=== PATIENT | female | born 1990 | race Caucasian/White ===

== ENCOUNTER 2017-01-11 08:50 | Emergency (ER) | payer OTHER ==
[~2017-01-11] VITALS: Ht 170.2 cm; Wt 49.9 kg
--- NOTE | 2017-01-11 09:28 | NUR ---
Patient ambulated to bathroom with steady gait, and had one loose BM per patient's report.
[2017-01-11 09:49] LABS: BASOPHILS % (AUTO) 0.3 % (0.0-2.0); HEMATOCRIT 30.6 % (31.2-41.9); HEMOGLOBIN 10.5 g/dL (10.9-14.3); LYMPHOCYTES # (AUTO) 0.6 K/uL (20.0-40.0); LYMPHOCYTES % (AUTO) 6.6 % (20.5-51.5); MEAN CORPUSCULAR HEMOGLOBIN 28.3 uug (24.7-32.8); MEAN CORPUSCULAR HGB CONC 34 g/dL (32.3-35.6); MEAN CORPUSCULAR VOLUME 82.5 fL (75.5-95.3); MONOCYTES # (AUTO) 0.6 K/uL (2.0-10.0); MONOCYTES % (AUTO) 6.3 % (0.0-11.0); NEUTROPHILS # (AUTO) 7.8 K/uL (1.8-8.9); NEUTROPHILS % (AUTO) 86.8 % (38.5-71.5); PLATELET COUNT (AUTO) 216 K/uL (179-408); RED BLOOD CELL COUNT(AUTO) 3.72 MIL/uL (3.63-4.92)
[2017-01-11 09:50] LABS: CREATININE 1.1 mg/dL (0.6-1.3); POTASSIUM 3.4 mmol/L (3.5-5.1)
--- NOTE | 2017-01-11 09:50 | NUR ---
Patient is resting comfortably on gurney while using her personal electronic device, NAD
[2017-01-11 09:56] LABS: BILIRUBIN,DIRECT 0.1 mg/dL (0.0-0.2); BILIRUBIN,TOTAL 0.4 mg/dL (0.2-1.0)
--- NOTE | 2017-01-11 10:15 | NUR ---
IV removed. Catheter intact and site benign. Pressure and 4x4 gauze applied to site. No bleeding noted. Patient discharged to home in stable conditon. Written and verbal after care instructions given to patient. Patient verbalizes understanding of instructions. Patient wants to rest for 10 more minutes in our ER- acknowledged and okayed by
== END 2017-01-11 10:22 | disposition home or self-care (01) ==
LOC: ER 08:50
DX: J02.9 Acute pharyngitis, unspecified (principal); R19.7 Diarrhea, unspecified
CPT/HCPCS: 36415; 83690; 85025; 87400; A4663; J7030

== ENCOUNTER 2017-10-12 21:19 | Emergency (ER) | payer OTHER ==
[~2017-10-12] VITALS: Ht 170.2 cm; Wt 52.2 kg
--- NOTE | 2017-10-12 21:50 | NUR ---
Patient discharged to home in stable conditon. Written and verbal after care instructions given. Patient verbalizes understanding of instructions. Patient able to ambulate unassisted with a steady gait. Patient left with all personal belongings.
[2017-10-12 22:11] VITALS: BP 108/74
== END 2017-10-12 21:50 | disposition home or self-care (01) ==
LOC: ER 21:21
DX: B34.9 Viral infection, unspecified (principal)
CPT/HCPCS: 99283; A4663

== ENCOUNTER 2019-04-28 20:38 | Emergency (ER) | payer MEDICAID, OTHER ==
[~2019-04-28] VITALS: Ht 170.2 cm; Wt 47.2 kg
--- NOTE | 2019-04-28 20:45 | NUR ---
Dr. Sorensen at bedside for MSE.
[2019-04-28 21:11] LABS: *BILIRUBIN,URIN NEGATIVE (NEGATIVE); *BLOOD, URINE NEGATIVE (NEGATIVE); *CLARITY,URINE CLEAR (CLEAR); *COLOR,URINE YELLOW (YELLOW); *KETONES,URINE NEGATIVE (NEGATIVE); *UROBILINOGEN,URINE 0.2 E.U./dl (NORMAL); LEUKOCYTE ESTERASE ,URINE NEGATIVE (NEGATIVE); NITRITE, URINE NEGATIVE (NEGATIVE); PH,URINE 7.5 (5.0-8.0); UGLUCOSE NEGATIVE (NEGATIVE)
[2019-04-28 21:12] LABS: *URINE HCG, QUAL NEGATIVE (NEGATIVE)
[2019-04-28] MEDS ORDERED: NITROFURANTOIN/NITROFURAN MAC 100 MG CAPSULE PO ONE (21:15)
[2019-04-28] MEDS ORDERED: NITROFURANTOIN/NITROFURAN MAC 100 MG CAPSULE ONE (21:16)
[2019-04-28] MEDS ORDERED: IBUPROFEN 400 MG TABLET PO ONE (21:45)
[2019-04-28] MEDS ORDERED: ACETAMINOPHEN ES 500 MG TABLET PO ONE (21:45)
[2019-04-28] MEDS ORDERED: IBUPROFEN 400 MG TABLET ONE (21:46)
[2019-04-28] MEDS ORDERED: ACETAMINOPHEN ES 500 MG TABLET ONE (21:46)
--- NOTE | 2019-04-28 22:35 | NUR ---
Dr. Sorensen at bedside for pelvic exam, with female chapperone.
[2019-04-28] MEDS ORDERED: CEFTRIAXONE 500 MG in IV DEXTROSE 5% 50 ML IV SCH (23:00)
[2019-04-28] MEDS ORDERED: ONDANSETRON ODT 4 MG TAB.RAPDIS SL ONE (23:00)
[2019-04-28] MEDS ORDERED: AZITHROMYCIN 250 MG TABLET PO ONE (23:00)
[2019-04-28] MEDS ORDERED: AZITHROMYCIN 250 MG TABLET ONE (23:11)
[2019-04-28] MEDS ORDERED: CEFTRIAXONE 500 MG VIAL ONE (23:12)
[2019-04-28] MEDS ORDERED: LIDOCAINE HCL 1% 20 ML VIAL ONE (23:13)
[2019-04-28] MEDS ORDERED: ONDANSETRON ODT 4 MG TAB.RAPDIS ONE (23:13)
[2019-04-28] MEDS ORDERED: CEFTRIAXONE 500 MG VIAL IM ONE (23:15)
[2019-04-28 23:28] LABS: BASOPHILS % (AUTO) 0.9 % (0.0-2.0); EOSINOPHILS # (AUTO) 0.2 K/uL (0.0-0.7); EOSINOPHILS % (AUTO) 3.7 % (0.0-7.0); HEMATOCRIT 28.1 % (31.2-41.9); HEMOGLOBIN 9.2 g/dL (10.9-14.3); LYMPHOCYTES # (AUTO) 0.4 K/uL (20.0-40.0); LYMPHOCYTES % (AUTO) 8.3 % (20.5-51.5); MEAN CORPUSCULAR HEMOGLOBIN 25.5 uug (24.7-32.8); MEAN CORPUSCULAR HGB CONC 33 g/dL (32.3-35.6); MEAN CORPUSCULAR VOLUME 77.5 fL (75.5-95.3); MONOCYTES # (AUTO) 0.5 K/uL (2.0-10.0); MONOCYTES % (AUTO) 9.7 % (0.0-11.0); NEUTROPHILS % (AUTO) 77.4 % (38.5-71.5); PLATELET COUNT (AUTO) 237 K/uL (179-408); RED BLOOD CELL COUNT(AUTO) 3.63 MIL/uL (3.63-4.92); WHITE BLOOD COUNT (AUTO) 5.2 K/uL (3.8-11.8)
[2019-04-28 23:39] LABS: CREATININE 0.8 mg/dL (0.6-1.3); POTASSIUM 3.2 mmol/L (3.5-5.1)
--- NOTE | 2019-04-29 01:17 | NUR ---
Patient discharged to home in stable conditon. Written and verbal after care instructions given. Patient verbalizes understanding of instructions. Pt ambulated out of ER with steady gait, no acute signs of distress, VSS, all belongings taken.
[2019-04-29 01:18] VITALS: BP 98/71
[2019-05-01 08:12] LABS: *GC NAA Negative (Negative); *TRIC.VAG. NAA Negative (Negative)
== END 2019-04-29 01:18 | disposition home or self-care (01) ==
LOC: ER 20:38
DX: N93.9 Abnormal uterine and vaginal bleeding, unspecified (principal); N34.2 Other urethritis; R05 Cough; J02.9 Acute pharyngitis, unspecified; R09.81 Nasal congestion; F32.9 Major depressive disorder, single episode, unspecified; F41.9 Anxiety disorder, unspecified
CPT/HCPCS: 36415; 80048; 81001; 84703; 85025; 87086; 87210; 87400; 87491; 96372; 99284; J0696; J3490; A4663; A9150; Q0144; Q0162

== ENCOUNTER 2019-05-01 09:22 | Emergency (ER) | payer OTHER ==
[~2019-05-01] VITALS: Ht 170.2 cm; Wt 47.6 kg
[2019-05-01] MEDS ORDERED: KETOROLAC TROMETHAMINE 30 MG INJ IVP ONE (09:45)
[2019-05-01] MEDS ORDERED: IV NORMAL SALINE 1000 ML BAG IV ONE ×2 (09:45→10:45)
[2019-05-01] MEDS ORDERED: KETOROLAC TROMETHAMINE 30 MG INJ ONE (10:00)
[2019-05-01 10:09] LABS: BASOPHILS % (AUTO) 0.3 % (0.0-2.0); EOSINOPHILS % (AUTO) 0.6 % (0.0-7.0); HEMATOCRIT 32.5 % (31.2-41.9); HEMOGLOBIN 10.5 g/dL (10.9-14.3); LYMPHOCYTES # (AUTO) 0.6 K/uL (20.0-40.0); LYMPHOCYTES % (AUTO) 15.9 % (20.5-51.5); MEAN CORPUSCULAR HEMOGLOBIN 25.1 uug (24.7-32.8); MEAN CORPUSCULAR HGB CONC 32 g/dL (32.3-35.6); MEAN CORPUSCULAR VOLUME 77.9 fL (75.5-95.3); MONOCYTES # (AUTO) 0.3 K/uL (2.0-10.0); MONOCYTES % (AUTO) 8.6 % (0.0-11.0); NEUTROPHILS # (AUTO) 2.8 K/uL (1.8-8.9); NEUTROPHILS % (AUTO) 74.6 % (38.5-71.5); PLATELET COUNT (AUTO) 190 K/uL (179-408); RED BLOOD CELL COUNT(AUTO) 4.17 MIL/uL (3.63-4.92); WHITE BLOOD COUNT (AUTO) 3.8 K/uL (3.8-11.8)
[2019-05-01 10:15] LABS: CARBON DIOXIDE 27 mmol/L (21-32); CHLORIDE 99 mmol/L (98-107); CREATININE 0.9 mg/dL (0.6-1.3); GLUCOSE 85 mg/dL (74-106); POTASSIUM 4.1 mmol/L (3.5-5.1); UREA NITROGEN, BLOOD 11 mg/dL (7-18)
[2019-05-01 10:20] LABS: ALANINE AMINOTRANSFERASE 28 U/L (14-59); ALKALINE PHOSPHATASE 50 U/L (50-136); ASPARTATE AMINOTRANSFERASE 39 U/L (15-37); BILIRUBIN,DIRECT < 0.1 mg/dL (0.0-0.2); BILIRUBIN,TOTAL 0.3 mg/dL (0.2-1.0); TOTAL PROTEIN, SERUM 8.1 g/dL (6.4-8.2)
[2019-05-01] MEDS ORDERED: ACETAMINOPHEN ES 500 MG TABLET PO ONE (10:45)
[2019-05-01] MEDS ORDERED: ACETAMINOPHEN ES 500 MG TABLET ONE (10:51)
--- NOTE | 2019-05-01 11:32 | NUR ---
Patient discharged to home in stable conditon. Written and verbal after care instructions given. Patient verbalizes understanding of instructions.PT WALKS IN STEADY GAIT. PT SAYS FEELS BETTER. DENIES DIZZINESS, NAUSEA, PAIN DOWN TO TOLRALABLE LEVEL.
[2019-05-01 11:34] VITALS: BP 117/66
== END 2019-05-01 11:32 | disposition home or self-care (01) ==
LOC: ER 09:24
DX: J20.9 Acute bronchitis, unspecified (principal); R10.9 Unspecified abdominal pain; F32.9 Major depressive disorder, single episode, unspecified; F41.9 Anxiety disorder, unspecified; F14.10 Cocaine abuse, uncomplicated; R42 Dizziness and giddiness; R51 Headache
CPT/HCPCS: 36415; 71045; 80048; 80076; 83605; 84443; 85025; 87040 ×2; 96361; 96374; 99284; J1885; A4663; A9150; J7030

== ENCOUNTER 2019-05-03 13:42 | Emergency (ER) | payer OTHER ==
[~2019-05-03] VITALS: Ht 170.2 cm; Wt 47.6 kg
--- NOTE | 2019-05-03 14:00 | NUR ---
Dr. Ortega at bedside
[2019-05-03] MEDS ORDERED: ACETAMINOPHEN ES 500 MG TABLET ONE (14:07)
[2019-05-03] MEDS ORDERED: ACETAMINOPHEN 325 MG TABLET PO ONE (14:15)
[2019-05-03] MEDS ORDERED: IV NORMAL SALINE 1000 ML BAG IV ONE (14:15)
--- NOTE | 2019-05-03 14:32 | NUR ---
xray at bedside
[2019-05-03 14:35] LABS: BASOPHILS % (AUTO) 0.6 % (0.0-2.0); EOSINOPHILS % (AUTO) 1.5 % (0.0-7.0); HEMATOCRIT 28.6 % (31.2-41.9); HEMOGLOBIN 9.1 g/dL (10.9-14.3); LYMPHOCYTES # (AUTO) 0.7 K/uL (20.0-40.0); LYMPHOCYTES % (AUTO) 30.4 % (20.5-51.5); MEAN CORPUSCULAR HEMOGLOBIN 24.6 uug (24.7-32.8); MEAN CORPUSCULAR HGB CONC 32 g/dL (32.3-35.6); MEAN CORPUSCULAR VOLUME 77.2 fL (75.5-95.3); MONOCYTES # (AUTO) 0.1 K/uL (2.0-10.0); MONOCYTES % (AUTO) 5.9 % (0.0-11.0); NEUTROPHILS # (AUTO) 1.5 K/uL (1.8-8.9); NEUTROPHILS % (AUTO) 61.6 % (38.5-71.5); PLATELET COUNT (AUTO) 156 K/uL (179-408); RED BLOOD CELL COUNT(AUTO) 3.71 MIL/uL (3.63-4.92); WHITE BLOOD COUNT (AUTO) 2.5 K/uL (3.8-11.8)
[2019-05-03 14:41] LABS: CREATININE 0.9 mg/dL (0.6-1.3); POTASSIUM 3.9 mmol/L (3.5-5.1)
[2019-05-03 14:59] LABS: BILIRUBIN,DIRECT 0.1 mg/dL (0.0-0.2); BILIRUBIN,TOTAL 0.3 mg/dL (0.2-1.0); TOTAL PROTEIN, SERUM 7.2 g/dL (6.4-8.2)
[2019-05-03 15:07] LABS: *BILIRUBIN,URIN NEGATIVE (NEGATIVE); *BLOOD, URINE NEGATIVE (NEGATIVE); *CLARITY,URINE CLEAR (CLEAR); *COLOR,URINE YELLOW (YELLOW); *KETONES,URINE NEGATIVE (NEGATIVE); *UROBILINOGEN,URINE 0.2 E.U./dl (NORMAL); LEUKOCYTE ESTERASE ,URINE NEGATIVE (NEGATIVE); NITRITE, URINE NEGATIVE (NEGATIVE); PH,URINE 7.5 (5.0-8.0); UGLUCOSE NEGATIVE (NEGATIVE)
[2019-05-03 15:21] LABS: NEUTROPHILS % (MANUAL) 53 % (42-75)
[2019-05-03 15:22] LABS: EOSINOPHILS % (MANUAL) 5 % (0-8); LYMPHOCYTES % (MANUAL) 38 % (20-40); MONOCYTES % (MANUAL) 4 % (2-10)
--- NOTE | 2019-05-03 15:45 | NUR ---
rapid influenza swab done and taken to lab
[2019-05-03] MEDS ORDERED: HYDROMORPHONE 1 MG/1 ML DISP.SYRIN ONE (16:30)
[2019-05-03] MEDS ORDERED: HYDROMORPHONE 1 MG/1 ML DISP.SYRIN IV ONE (16:30)
[2019-05-03] MEDS ORDERED: ONDANSETRON 4 MG/2 ML VIAL IV ONE (16:30)
[2019-05-03] MEDS ORDERED: ONDANSETRON 4 MG/2 ML VIAL ONE (16:30)
--- NOTE | 2019-05-03 16:53 | NUR ---
patient taken to CT scan via wheel chair in stable condition
--- NOTE | 2019-05-03 17:15 | NUR ---
patient back from CT scan in stable condition
--- NOTE | 2019-05-03 17:51 | NUR ---
IV removed. Catheter intact and site benign. Pressure and 4x4 gauze applied to site. No bleeding noted. Patient discharged to home in stable conditon. Written and verbal after care instructions given. Patient verbalizes understanding of instructions. patient ambulating with steady gait
[2019-05-03 18:20] VITALS: BP 125/69
== END 2019-05-03 17:51 | disposition home or self-care (01) ==
LOC: ER 13:42
DX: B34.9 Viral infection, unspecified (principal); F32.9 Major depressive disorder, single episode, unspecified; F41.9 Anxiety disorder, unspecified
CPT/HCPCS: 36415; 70450; 71045; 80048; 80076; 81001; 83690; 84443; 84484; 84702; 85007; 85025; 85730; 87400; 93005; 96374; 96375; 99284; J1170; J2405; 70030-TC; A4663; A9150; J7030